=== PATIENT | female | born 1995 | race Caucasian/White ===

== ENCOUNTER 2018-03-02 10:05 | Emergency (ER) | payer OTHER ==
[~2018-03-02] VITALS: Ht 170.1 cm; Wt 81.6 kg
[~2018-03-02 10:05] MED LIST: MACROBID100 M1 PO
== END 2018-03-02 11:27 | disposition home or self-care (01) ==
LOC: ED 10:05
DX: J06.9 Acute upper respiratory infection, unspecified (principal); F17.200 Nicotine dependence, unspecified, uncomplicated; Z88.0 Allergy status to penicillin

== ENCOUNTER 2019-04-24 09:12 | Emergency (ER) | payer SELFPAY ==
[~2019-04-24] VITALS: Ht 170.1 cm; Wt 79.4 kg
[2019-04-24] MEDS ORDERED: TAMIFLU 75MG CA75 MG PO (11:37)
== END 2019-04-24 11:42 | disposition home or self-care (01) ==
LOC: ED 09:12
DX: J11.1 Influenza due to unidentified influenza virus with other respiratory manifestations (principal); F17.200 Nicotine dependence, unspecified, uncomplicated; Z79.899 Other long term (current) drug therapy

== ENCOUNTER 2019-07-08 18:03 | Emergency (ER) | payer MEDICAID ==
[~2019-07-08] VITALS: Wt 65.8 kg
[~2019-07-08 18:03] MED LIST changes: +TAMIFLU 75MG CA75 MG PO
== END 2019-07-08 18:19 | disposition home or self-care (01) ==
LOC: ED 18:03
DX: S61.200A Unspecified open wound of right index finger without damage to nail, initial encounter (principal); Z88.0 Allergy status to penicillin; Z79.899 Other long term (current) drug therapy; W31.89XA Contact with other specified machinery, initial encounter; Y93.89 Activity, other specified; Y92.89 Other specified places as the place of occurrence of the external cause; Y99.8 Other external cause status